=== PATIENT | female | born 1970 | race Hispanic/Latino ===

== ENCOUNTER 2016-07-10 20:37 | Emergency (ER) | payer OTHER ==
[~2016-07-10] VITALS: Ht 167.6 cm; Wt 90.9 kg
[~2016-07-10 20:37] MED LIST: MULT-1007 PO; OMEP-113 PO; RANI300T4 PO
[2016-07-10 20:56] VITALS: BP 130/74; PULSE 62; RESP 18; O2SAT 97
[2016-07-10] MEDS ORDERED: Ondansetron 8 mg ODT Tablet PO ONE (21:05)
--- NOTE | 2016-07-10 22:46 | ED.REPORT ---
HPI-Dizziness / Weakness Date of Service Jul 10, 2016 ED Provider: Clinton Pena MD A 46 year old female with a history of fibromyalgia presents to the ED accompanied by her family with dizziness onset this evening, while sitting after dinner. The dizziness was described as the "room moving," exacerbated with standing up or position change. Associated symptoms include nausea, vomiting, headache, and blurred vision. The patient denies double vision, problems speaking, dysphagia, weakness, tinnitus, hearing loss, or other symptoms. She has had similar symptoms in the past. The patient speaks Slovak and her son was translating. Nursing Notes Stated Complaint: BLURRED VISION, DIZZY, VOMITING Chief Complaint: General Complaint Nursing Notes Reviewed: Yes Allergies: Coded Allergies: No Known Drug Allergies (Verified Allergy, Unknown, 02/27/14) Scheduled Meclizine (Bonine) 25 Mg Tab.chew 25 MG PO TID Omeprazole Magnesium (Omeprazole) 20 Mg Capsule.dr 20 MG PO DAILY Ranitidine (Ranitidine) 300 Mg Tablet 300 MG PO DAILY Miscellaneous Medications Multivitamin (Multi-Vitamin Daily) 1 Each Tablet 1 EACH PO General Time Seen by MD: 22:45 Chief Complaint Dizzy Hx Obtained From: Patient Arrived By: Walk-in Onset Occurred: 1 - 4 hours ago Symptom Duration: Since onset Location: : Head Quality: Aching, Painful Severity: Current: Moderate Severity: Maximum: Moderate Exacerbated by: Change in position, Movement Pertinent Negative: Relieved by nothing Recent Healthcare: No recent doctor visit Similar Sx Previous: Yes Past Medical History Past Medical History Fibromyalgia Past Surgical History Knee x2 Tubal ligation Smoking History Never Smoker Social History Other Social History: Good social support Ambulatory Status Independent Review of Systems Review of Systems Note: - Dysphagia, tinnitus Constitutional: Denies: Fever Ears / Nose / Throat: Denies: Hearing loss bilateral Respiratory: Denies: Non-productive cough, Shortness of breath GI: Reports: Nausea, Vomiting, Denies: Diarrhea Neurologic: Reports: Dizziness, Headache, Vision change (Blurred. Patient denies double vision.), Denies: Slurred speech, Unable to speak, Weakness Complete sys rev & neg: except as marked. Physical Exam Physical Exam Notes: Initial Vital Signs Vital Signs (First) Date Time Temp Pulse Resp B/P Pulse Ox O2 Delivery O2 Flow Rate FiO2 07/10/16 20:56 35.9 62 18 130/74 97 Room Air Initial VS: Reviewed Skin: Warm, Dry Psychiatric: Mood/affect normal, Behavior normal General/Constitutional: Awake, Alert Head / Eyes: Atraumatic, Normocephalic, EOMI Eye Movement: Positive: Nystagmus present (With fast-phase to the right) Respiratory / Chest: Breath sounds NL, Breath sounds = bilat, No respiratory distress Cardiovascular: Heart rate NL, Regular rhythm, Heart sounds NL, No gallop, No murmurs, No rubs Neurologic: Oriented X3, Speech NL Cerebellar Dysfunction: Negative: Finger-nose abnl No facial droop ENT: Tympanic membs NL, Ext aud canal NL Re-Eval/Medical Decision Re-Evaluation/Progress : Time of Eval: 23:00 Patient Status: Condition improved Re-Evaluation/Progress Note: Discussed with patient physical exam findings, diagnosis, and plan for discharge. Follow-up and return to the ER instructions given. Patient agrees with plan for care and all questions were addressed. Counseled Regarding: Diagnosis, Need for follow-up, When/why to return to ED Patient Discharge & Departure Impression: Primary Impression: Benign positional vertigo Laterality: left Qualified Code: H81.12 - Benign paroxysmal vertigo, left ear Disposition: Home Discharge Condition All VS Reviewed: Yes Condition: Improved Patient Instructions: Benign Paroxysmal Positional Vertigo (ED) Additional Instructions: The dizziness and nausea you experienced are consistent with BPPV. Meclizine can help with dizziness, ondansetron as needed for nausea. Expect you may have some more episodes of this in the next few days. See the hand out for liam joe, this may help speed resolution, it will cause dizziness when you do it. Return to ED for severe headache, severe, disabling dizziness. Referrals: Alesia Rollins (PCP) [facility] Scribe Attestation Portions of this note were transcribed by Isamar Weems. I, Dr. Pena, personally performed the history, physical exam, and medical decision-making; I reviewed and confirmed the accuracy of the information in the transcribed note. Signed by: Holden Alvarez, 07/11/2016, 01:15 Alesia Rollins; [facility] Clinton Pena MD Jul 10, 2016 22:46 ISAMAR WEEMS Jul 10, 2016 22:55
[2016-07-10] MEDS ORDERED: _Ondansetron ODT 4 mg Tablet PO PRN (23:00)
[2016-07-10] MEDS ORDERED: MECL-114 PO (23:03)
[2016-07-10 23:35] VITALS: BP 119/54; PULSE 60; RESP 16; O2SAT 97
== END 2016-07-10 23:35 | disposition home or self-care (01) ==
LOC: SED 20:37
DX: H81.12 Benign paroxysmal vertigo, left ear (principal)